=== PATIENT | female | born 2000 | race Two or more races ===

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

== ENCOUNTER 2020-06-06 19:24 | Emergency (ER) | payer SELFPAY ==
[~2020-06-06] VITALS: Ht 154.9 cm; Wt 51.7 kg
--- NOTE | 2020-06-06 20:28 | NUR ---
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
--- NOTE | 2020-06-06 20:47 | NUR ---
PT CAME IN CO OF RIGHT FLANK PAIN THAT HAS BEEN GOING ON FOR ABOUT A WEEK. ON SATURDAY SHE WAS REALLY NAUSEOUS ALL DAY BUT DID NOT VOMIT. PT IS RESTING IN [place]. ACCOMPANIED BY MOTHER. CONNECTED TO MONITORING EQUIPMENT. CORRIE SENT
[2020-06-06 21:00] LABS: HCG UR SG 1.025 (1.003-1.030)
[2020-06-06 21:01] LABS: MICROSCOPIC INDICATED
--- NOTE | 2020-06-06 21:33 | NUR ---
PT TO CT AT THIS TIME
--- NOTE | 2020-06-06 22:05 | NUR ---
REPORT RECIEVED FROM JACK HAYWARD
--- NOTE | 2020-06-06 22:25 | NUR ---
PATIENT TO US
[2020-06-06 23:07] VITALS: BP 109/80
== END 2020-06-06 23:18 | disposition home or self-care (01) ==
LOC: ED 20:57
DX: N83.201 Unspecified ovarian cyst, right side (principal); R11.0 Nausea
CPT/HCPCS: 74176; 76830; 81001; 81025; 87086; 99285

== ENCOUNTER 2020-06-11 09:52 | Emergency (ER) | payer SELFPAY ==
[~2020-06-11] VITALS: Ht 154.9 cm; Wt 52.8 kg
[2020-06-11 10:10] VITALS: BP 122/75
[2020-06-11] MEDS ORDERED: ONDANSETRON 2MG/ML, 2ML ONE (10:24)
[2020-06-11] MEDS ORDERED: MORPHINE SULFATE 4 MG/ML, 1ML ONE (10:25)
[2020-06-11] MEDS ORDERED: MORPHINE SULFATE 4 MG/ML, 1ML IVPush PRN (10:30)
[2020-06-11] MEDS ORDERED: SODIUM CHLORIDE FLUSH 10ML SYR IVF ONE (10:30)
[2020-06-11] MEDS ORDERED: ONDANSETRON 2MG/ML, 2ML IVPush ONE (10:30)
[2020-06-11 10:45] LABS: BASOPHILS # (AUTO) 0.02 x10^3/uL (0-0.3); BASOPHILS % (AUTO) 0 % (0-1); EOSINOPHILS # (AUTO) 0.07 x10^3/uL (0-0.8); EOSINOPHILS % (AUTO) 1 % (1-7); LYMPHOCYTES # (AUTO) 2.23 x10^3/uL (1-6.1); LYMPHOCYTES % (AUTO) 33 % (22-44); MD NO; MEAN CORPUSCULAR HEMOGLOBIN 29.4 pg (27.0-34.8); MEAN CORPUSCULAR VOLUME 88.9 fL (80-100); MEAN PLATELET VOLUME 8.7 fL (7.4-10.4); MONOCYTES # (AUTO) 0.42 x10^3/uL (0-1.4); MONOCYTES % (AUTO) 6 % (2-9); NEUTROPHILS # (AUTO) 4.12 x10^3/uL (1.8-8.0); NEUTROPHILS % (AUTO) 60 % (42-75); PLATELET COUNT 246 x10^3/uL (130-400); RED BLOOD COUNT 4.75 x10^6/uL (3.82-5.3); RED CELL DISTRIBUTION WIDTH 13.5 % (9.6-15.2)
[2020-06-11 10:56] LABS: ALANINE AMINOTRANSFERASE 19 U/L (12-78); ALBUMIN 4.1 g/dL (3.4-5.0); ANION GAP 5 mmol/L (5-15); CALCIUM 8.8 mg/dL (8.5-10.1); CHLORIDE 112 mmol/L (98-107); CREATININE 0.73 mg/dL (0.55-1.02)
[2020-06-11 10:58] LABS: ALKALINE PHOSPHATASE 79 U/L (45-117); BILIRUBIN,TOTAL 0.3 mg/dL (0.2-1.0); TOTAL PROTEIN 7.7 g/dL (6.4-8.2)
[2020-06-11 11:18] LABS: MICROSCOPIC AUTO
--- NOTE | 2020-06-11 11:31 | NUR ---
pt updated on poc. pt agrees at this time to us. pt encouragede to remove clothing and warm blankets provided for comfort.
--- NOTE | 2020-06-11 11:35 | NUR ---
,pt to us now
== END 2020-06-11 13:30 | disposition home or self-care (01) ==
LOC: ED 12:25
DX: N83.201 Unspecified ovarian cyst, right side (principal); R10.30 Lower abdominal pain, unspecified
CPT/HCPCS: 36415; 76830; 80053; 81001; 85025; 96374; 96375; 99284; J2270; J2405